=== PATIENT | female | born 1980 | race African-American/Black ===

== ENCOUNTER 2017-02-28 12:30 | Emergency (ER) | payer OTHER ==
[~2017-02-28] VITALS: Ht 162.6 cm; Wt 81.7 kg
[~2017-02-28 12:30] MED LIST: CARVEDILOL25 MG PO; CIPROFLOXACIN500 M1 PO; CLEOCIN HCL300 MG PO; COLACE100 MG PO; EXCEDRIN CAPLE1 EACH PO; IBUPROFEN 600600 M1 PO; KEFLEX500 MG PO; LAMISIL15 GM TP; NAPROSYN500 MG PO; NOHOMEMEDICATIONS; NORCO 5-325 TA1 EACH PO; PROMETHAZINE HC25 M2 PO; PYRIDIUM200 MG PO; ULTRAM 50MG TAB50 MG PO; VALIUM2 MG PO; ZANTAC 150MG T150 M1 PO; ZOFRAN ODT4 MG PO
[2017-02-28 12:48] LABS: ABSOLUTE NEUTROPHILS 2.3 thou/uL (1.4-8.2); BASOPHILS 0.9 % (0.0-2.0); EOSINOPHILS 1.4 % (0.0-3.0); HEMATOCRIT 37.1 % (37.0-47.0); HEMOGLOBIN 12.7 gm/dL (12.0-15.0); LYMPHOCYTES 40.6 % (24.0-44.0); MCH 30.3 pg (26.0-34.0); MCHC 34.2 g/dL (28.0-37.0); MCV 88.7 fL (80.0-100.0); MONOCYTES 11.3 % (1.0-8.0); PLATELET COUNT 236 thou/uL (150-400); POLYS 45.8 % (36.0-66.0); RBC 4.18 mil/uL (4.20-5.00); RDW 13.5 % (10.5-14.5); WBC 5.1 thou/uL (4.0-11.0)
[2017-02-28 12:51] LABS: MANUAL DIFF NO
[2017-02-28 13:10] LABS: CALCIUM 9.2 mg/dL (8.5-10.1); CREATININE 0.7 mg/dL (0.6-1.0); POTASSIUM 3.6 mmol/L (3.5-5.1)
[2017-02-28 13:14] LABS: ALBUMIN 3.9 g/dL (3.4-5.0); TOTAL BILIRUBIN 0.3 mg/dL (<0.1-1.0); TOTAL PROTEIN 7.9 g/dL (6.4-8.2)
[2017-02-28 14:24] LABS: URINE BILIRUBIN NEGATIVE (Negative); URINE BLOOD NEGATIVE (Negative); URINE COLOR YELLOW; URINE GLUCOSE-RANDOM* NEGATIVE (Negative); URINE KETONES NEGATIVE (Negative); URINE NITRITE NEGATIVE (Negative); URINE PROTEIN (DIPSTICK) NEGATIVE (Negative); URINE SPECIFIC GRAVITY 1.015 (1.003-1.035); URINE UROBILINOGEN 0.2 E.U./dl (0.2-1.0)
[2017-02-28] MEDS ORDERED: NORCO 5-325 TA1 EACH PO (15:00)
[2017-02-28 15:24] VITALS: BP 142/95
== END 2017-02-28 15:25 | disposition home or self-care (01) ==
LOC: ER 12:30
PROVIDERS: Physician Assistant
DX: N83.202 Unspecified ovarian cyst, left side (principal); N83.201 Unspecified ovarian cyst, right side; I10 Essential (primary) hypertension; M19.90 Unspecified osteoarthritis, unspecified site; Z98.890 Other specified postprocedural states; Z86.2 Personal history of diseases of the blood and blood-forming organs and certain disorders involving the immune mechanism; Z90.49 Acquired absence of other specified parts of digestive tract; Z88.6 Allergy status to analgesic agent

== ENCOUNTER 2017-08-15 01:32 | Emergency (ER) | payer OTHER ==
[~2017-08-15] VITALS: Ht 162.6 cm; Wt 89.8 kg
[2017-08-15 02:03] LABS: URINE BILIRUBIN NEGATIVE (Negative); URINE BLOOD NEGATIVE (Negative); URINE COLOR YELLOW; URINE GLUCOSE-RANDOM* NEGATIVE (Negative); URINE KETONES NEGATIVE (Negative); URINE LEUKOCYTES-REFLEX NEGATIVE (Negative); URINE PROTEIN (DIPSTICK) NEGATIVE (Negative); URINE UROBILINOGEN 0.2 E.U./dl (0.2-1.0)
[2017-08-15 02:20] VITALS: BP 128/66
[2017-08-15] MEDS ORDERED: FLAGYL500 MG PO (02:33)
[2017-08-19 00:06] LABS: CHLAMYDIA TRACHOMATIS-PCR Negative (Negative); NEISSERIA GONORRHEA-PCR Negative (Negative)
== END 2017-08-15 02:59 | disposition home or self-care (01) ==
LOC: ER 01:32
PROVIDERS: Emergency Medicine
DX: N76.0 Acute vaginitis (principal); I10 Essential (primary) hypertension; M19.90 Unspecified osteoarthritis, unspecified site; Z87.11 Personal history of peptic ulcer disease; Z98.890 Other specified postprocedural states; Z88.6 Allergy status to analgesic agent; Z88.5 Allergy status to narcotic agent

== ENCOUNTER 2018-05-14 00:04 | Emergency (ER) | payer OTHER ==
[~2018-05-14] VITALS: Ht 162.6 cm; Wt 85.7 kg
[~2018-05-14 00:04] MED LIST changes: +ALEVE220 MG PO; +FLAGYL500 MG PO
[2018-05-14] MEDS ORDERED: BUTALB-APAP-CA1 EACH PO (02:02)
[2018-05-14 02:15] VITALS: BP 136/91
== END 2018-05-14 02:16 | disposition home or self-care (01) ==
LOC: ER 00:04
DX: R51 Headache (principal); M25.512 Pain in left shoulder; I10 Essential (primary) hypertension; M19.90 Unspecified osteoarthritis, unspecified site; Z90.49 Acquired absence of other specified parts of digestive tract; Z90.89 Acquired absence of other organs; Z88.6 Allergy status to analgesic agent; V89.2XXA Person injured in unspecified motor-vehicle accident, traffic, initial encounter; Y93.89 Activity, other specified; Y92.89 Other specified places as the place of occurrence of the external cause; Y99.8 Other external cause status